=== PATIENT | male | born 1955 | race Caucasian/White ===

== ENCOUNTER 2024-04-25 06:33 | Day surgery (SDC) | payer MEDICARE, BC ==
[2024-04-25] VITALS (11 sets, daily range): BP systolic 94–132; BP diastolic 55–83; PULSE 60–96; RESP 12–15; TEMP 97.9; O2SAT 93–99
[~2024-04-25] VITALS: Ht 170.2 cm; Wt 81.6 kg
[~2024-04-25 06:33] MED LIST: ceFAZolin 2gm in dextrose, iso 50 ML IV ONE
[2024-04-25] MEDS ORDERED: FLO0.4C PO (07:25)
[2024-04-25] MEDS ORDERED: MULT-1074 PO (07:25)
[2024-04-25] MEDS ORDERED: ASPI-611 PO (07:25)
[2024-04-25 07:32] LABS: BASOPHILS % (AUTO) 0.9 % (0-1); EOSINOPHILS # (AUTO) 0.1 X10'3 (0-0.9); EOSINOPHILS % (AUTO) 1.2 % (0-6); HEMATOCRIT 43.1 % (42.0-52.0); HEMOGLOBIN 14.6 g/dl (14.0-17.9); LYMPHOCYTES # (AUTO) 1.6 X10'3 (1.1-4.8); LYMPHOCYTES % (AUTO) 35.4 % (21-51); MEAN CORPUSCULAR HGB CONC 33.9 g/dL (33.0-36.5); MEAN CORPUSCULAR VOLUME 91.6 FL (78-98); MEAN PLATELET VOLUME 7.8 FL (7.4-10.4); MONOCYTES # (AUTO) 0.5 X10'3 (0-0.9); MONOCYTES % (AUTO) 10.1 % (2-12); NEUTROPHILS # (AUTO) 2.4 X10'3 (1.8-7.7); NEUTROPHILS % (AUTO) 52.4 % (42-75); PLATELET COUNT 229 X10'3 (140-440); RED BLOOD COUNT 4.71 X10'6 (4.70-6.10); RED CELL DISTRIBUTION WIDTH 13.5 % (11.5-14.5); WHITE BLOOD COUNT 4.5 X10'3 (4.5-11.0)
[2024-04-25 07:42] LABS: INR 1.1 INR; PROTHROMBIN TIME 11.2 SECONDS (9.0-12.0)
[2024-04-25] MEDS: normal saline 1000ml 1,000 ML IV SCH (07:44)
[2024-04-25] MEDS: VANCOMYCIN 1,500MG inj. 1,500 MG in normal saline 500ml IV soln 300 ML IV ONE (07:44)
[2024-04-25 07:52] LABS: ALBUMIN 3.7 G/DL (3.4-5.0); ANION GAP 10 (8-16); BLOOD UREA NITROGEN 23 MG/DL (7-18); BUN/CREATININE RATIO 27.1 (10.0-20.0); CALCIUM 8.4 MG/DL (8.5-10.1); CHLORIDE 108 MMOL/L (99-107); CREATININE 0.85 MG/DL (0.60-1.10); GLUCOSE 91 MG/DL (70-104); MAGNESIUM 1.8 MG/DL (1.5-2.4); POTASSIUM 4.2 MMOL/L (3.5-5.1); SODIUM 139 MMOL/L (135-145); TOTAL CARBON DIOXIDE 21.4 MMOL/L (24-32); eCRCL 77 ML/MIN; eGFR 89 ML/MIN
[2024-04-25] MEDS ORDERED: vancomycin 1,000mg inj ONE (08:42)
[2024-04-25] MEDS ORDERED: iohexol 350 MG/ML 50ML vial IV ONE (08:42)
[2024-04-25] MEDS ORDERED: midazolam 1 mg/ML 2ml injection ONE ×2 (08:42→09:48)
[2024-04-25] MEDS ORDERED: fentaNYL/PF 50MCG/1 ML 2ML syringe ONE (08:42)
[2024-04-25] MEDS ORDERED: LIDOcaine 1% W/epiNEPHrine 1:100,000 20ml vial ONE (08:42)
[2024-04-25] MEDS ORDERED: HYDROmorphone 1 mg/ml syringe ONE (10:00)
[2024-04-25] MEDS: ondansetron/PF 4mg/2ml inj ONE (11:28)
[2024-04-25] MEDS ORDERED: HYDROcodone/acetaminophen 5mg/325mg tablet PO PRN (11:35)
[2024-04-25] MEDS ORDERED: HYDROcodone/acetaminophen 10/325mg tab PO PRN (11:35)
[2024-04-25] MEDS ORDERED: normal saline 1000ml 1,000 ML IV ONE (11:35)
[2024-04-25] MEDS: proCHLORperazine 10 MG/2 ml inj IV PRN (15:00)
== END 2024-04-25 17:30 | disposition home or self-care (01) ==
LOC: SSTAY O 06:33
PROVIDERS: ATTEND Internal Medicine Cardiovascular Disease
DX: R55 Syncope and collapse (principal); I44.1 Atrioventricular block, second degree; I48.0 Paroxysmal atrial fibrillation; K21.9 Gastro-esophageal reflux disease without esophagitis; Z87.891 Personal history of nicotine dependence; I34.0 Nonrheumatic mitral (valve) insufficiency
CPT/HCPCS: 33208; 36415; 71045; 80048; 83735; 85025; 85610; 93005; 99152; 99153; A4565; A4615; C1785; C1898; J0780; J1171; J2250; J2405; J3010; J3370; J3490; J7030; J7040; Q9967; Z7610

== ENCOUNTER 2024-12-26 05:54 | Day surgery (SDC) | payer MEDICARE, BC ==
[2024-12-26] VITALS (10 sets, daily range): BP systolic 98–129; BP diastolic 63–84; PULSE 70–74; RESP 10–16; TEMP 98.1; O2SAT 95–99
[~2024-12-26] VITALS: Ht 185.4 cm; Wt 81.6 kg
[~2024-12-26 05:54] MED LIST changes: +ASPI-611 PO; +MULT-1074 PO; +TAMS-55 PO; -ceFAZolin 2gm in dextrose, iso 50 ML IV ONE
[2024-12-26] MEDS ORDERED: MAGN200T5 PO (06:39)
[2024-12-26] MEDS ORDERED: ZINC PO (06:39)
[2024-12-26] MEDS ORDERED: METO-384 PO (06:39)
[2024-12-26] MEDS ORDERED: VIT D3 PO (06:39)
[2024-12-26] MEDS ORDERED: FISH OIL PO (06:39)
[2024-12-26] MEDS ORDERED: VIT B12 PO (06:39)
--- NOTE | 2024-12-26 06:43 | ELECTROCARDIOGRAPH REPORT ---
[facility] Test Date: 2024-12-26 Test Time: 07:39:23 Pat Name: RAMON ABREU Department: [facility] Patient ID: [id number] Room: Gender: M Ship'S Cook: KRUPA : 1955 Requested By: DIANE STREET Order Number: [id number] Reading MD: Dr. KISHORE Perdue Measurements Intervals Dorothy Rate: 74 P: 97 OR: 171 QRS: 86 QRSD: 163 T: -45 QT: 449 QTc: 499 Interpretive Statements A-V dual-paced complexes w/ some inhibition No further analysis attempted due to paced rhythm Electronically Signed On 12-26-2024 16:50:[address] KISHORE Perdue Please click the below link to view image of tracing.
[2024-12-26 07:00] LABS: MEAN PLATELET VOLUME 7.8 FL (7.4-10.4); RED CELL DISTRIBUTION WIDTH 13.6 % (11.5-14.5)
[2024-12-26 07:07] LABS: INR 1.0 INR
[2024-12-26] MEDS: sodium bicarbonate 1meq/ml syr 150 ML in dextrose 5%-water 1,000 ML IV ONE (07:17)
[2024-12-26 07:26] LABS: CREATININE 0.90 MG/DL (0.60-1.10); TOTAL CARBON DIOXIDE 24.6 MMOL/L (24-32); eCRCL 88 ML/MIN; eGFR 84 ML/MIN
[2024-12-26] MEDS ORDERED: LIDOcaine 1% (10mg/ml) 2ml vial ONE ×3 (07:46→08:22)
[2024-12-26] MEDS ORDERED: heparin 1,000unit/ml 10ml vial 10 ML ONE (07:46)
[2024-12-26] MEDS ORDERED: fentaNYL/PF 50MCG/1 ML 2ML syringe ONE (07:46)
[2024-12-26] MEDS ORDERED: verapamil 2.5 mg/ml inj IV ONE (07:46)
[2024-12-26] MEDS ORDERED: iohexol 350 MG/ML 50ML vial IV ONE (07:46)
[2024-12-26] MEDS ORDERED: midazolam 1 mg/ML 2ml injection ONE ×3 (07:46→08:51)
[2024-12-26] MEDS ORDERED: heparin 1,000 UNITS/NS 500ml 500 ML ONE (07:47)
[2024-12-26] MEDS ORDERED: nitroGLYCERIN 500mcg/5mL D5W 5 ML IV ONE (07:47)
[2024-12-26] MEDS ORDERED: ondansetron/PF 4mg/2ml inj ONE (08:15)
[2024-12-26] MEDS ORDERED: normal saline 1000ml 1,000 ML IV SCH (09:55)
[2024-12-26] MEDS ORDERED: ondansetron/PF 4mg/2ml inj IV PRN (09:56)
--- NOTE | 2024-12-26 12:51 | CARDIOLOGY REPORT ---
DATE OF SERVICE: 12/26/2024 DICTATING PHYSICIAN: DIANE STREET DO CARDIAC CATHETERIZATION REPORT FAMILY PARTNER NUMBER: [id number] [facility]. REFERRING PHYSICIAN: Sarah Carvalho MD CLINICAL HISTORY: This 69-year-old man has a previous history of atrial fibrillation, which appears to have been successfully ablated. Echocardiography since that intervention in 2018 has demonstrated variable degrees of mitral regurgitation. The patient is also about 2 years status post dual chamber pacemaker placement for Mobitz 2 AV block. He currently has no complaints of chest pain but has intermittent complaints of getting dyspneic. On some days, he can do just about any physical activity including walking up to 3 miles. On other days, he gets dyspneic with very little activity. Because of his varying degrees of dyspnea, a decision was made to proceed to right and left heart catheterization to * Rule out occult coronary disease. * To evaluate hemodynamic effects if any from his mitral regurgitation. PROCEDURES PERFORMED: * Right heart catheterization. * Left heart catheterization. * Left ventriculography. * Selective coronary arteriography. * 30 minutes conscious sedation supervision. DESCRIPTION OF PROCEDURE: The patient was sedated with fentanyl and Versed. He was then prepared and draped in the usual manner. An 18-gauge Angiocath was placed in a basilic cubital vein in the right arm. The area around this catheter was infiltrated with 1% lidocaine. The area surrounding his radial pulse was also infiltrated with 1% lidocaine. Using a 0.035 guidewire through the 18-gauge Angiocath, the catheter was removed and a 6-Bermudian sheath was put in place. Using this sheath, a 6-Bermudian Letona-Ashly catheter was performed to obtain pressures in the right heart, the pulmonary artery, and in the wedge position. Cardiac output was performed using thermal dilution technique. A 6F sheath was placed in the radial artery using a standard technique. Appropriate 5000 units of heparin were given in her peripheral IV and 200 mcg of nitroglycerin with 2.5 mg of verapamil were directly injected into the radial artery. Using this radial artery access, a 6-Bermudian pigtail catheter was used to measure pressures in the aorta and left ventricle. Left ventriculogram was performed using the same 6-Bermudian catheter. CORONARY ARTERIOGRAPHY: Was performed using a 6-Bermudian Kimny catheter for both the left and right coronary arteries. The arterial sheath was removed and a Vasc band applied. Direct pressure was applied to the cubital vein site until hemostasis was achieved. RESULTS: HEMODYNAMIC DATA: Mean right atrial pressure was 9 mmHg. Right ventricular pressure was 23/9 mmHg. Mean pulmonary capillary wedge pressure was 10 mmHg. Left ventricular end diastolic pressure was 17 mmHg. Pulmonary arterial pressure was 24/9 mmHg. There was no gradient across the aortic valve. Cardiac output by thermal dilution technique was 6.46 L per minute. LEFT VENTRICULOGRAM: The left ventriculogram was technically satisfactory. The posterior basal segment appeared to be somewhat hypokinetic, but overall left ventricular systolic function was good and estimated to be at least 55%. There was 2 to 3+ mitral regurgitation, which could have been due to proximity of the pigtail catheter. CORONARY ARTERIOGRAPHY: The coronary arteriograms were technically satisfactory. LEFT MAIN CORONARY ARTERY: The left main was a large unobstructed vessel bifurcating into left anterior descending and circumflex coronary arteries. LEFT ANTERIOR DESCENDING CORONARY ARTERY: The LAD was a large transapical vessel. There was a very small first diagonal, small to medium-sized second diagonal. These first 2 taking the origin proximally, there was a large bifurcated third diagonal taking its origin from the mid LAD. Further diagonals in the mid and distal vessel were very small in caliber. There were no obstructive lesions in the left anterior descending coronary artery. CIRCUMFLEX CORONARY ARTERY: The circumflex was a large main stem vessel. There was a medium-sized first obtuse marginal, a very small caliber second obtuse marginal, and a very tiny and short bifurcated posterolateral branch. There were no obstructive lesions in the circumflex coronary artery. RIGHT CORONARY ARTERY: The right coronary artery was a large posterior descending branch, a medium-sized first posterolateral branch, a small to medium-sized second posterolateral, and a small caliber third posterolateral. There were no obstructive lesions in the right coronary artery. CONCLUSIONS: 1. No evidence for obstructive coronary artery disease. 2. The posterior basal segment exhibited somewhat mild hypokinesis, but overall left ventricular function was good with an ejection fraction of 55%. There was 2 to 3+ mitral regurgitation, some of which could have been catheter induced. RECOMMENDATIONS: Recommendation is ongoing medical therapy; however, if this patient has clinically significant mitral regurgitation, it may be minimized or eliminated by upgrade of his pacemaker to a biventricular device. DIANE STREET DO TID: [id number] RECEIPT: [id number] ADÁN/LUCRETIA MTDD
== END 2024-12-26 13:00 | disposition home or self-care (01) ==
LOC: SSTAY O 05:54
PROVIDERS: ATTEND Internal Medicine Cardiovascular Disease
DX: I34.0 Nonrheumatic mitral (valve) insufficiency (principal); I48.91 Unspecified atrial fibrillation; I44.30 Unspecified atrioventricular block; Z95.0 Presence of cardiac pacemaker; Z98.890 Other specified postprocedural states
CPT/HCPCS: 36415; 80048; 83735; 85025; 85610; 93005; 93460; A6258; A6402; C1751; C1894; J1644; J2003; J2250; J2405; J3010; J3490; J7030; J7070; Q0163; Q9967; Z7610; 99152; 99153